=== PATIENT | female | born 1940 | race Caucasian/White ===

== ENCOUNTER 2018-06-19 00:31 | Outpatient (CLI) | payer MEDICARE, OTHER, SELFPAY ==
--- NOTE | 2018-06-19 07:58 | DI.RAD_ITS ---
SYMPTOM/DIAGNOSIS: CHEST PRESSURE, PAIN, R07.9 PA AND LATERAL CHEST: Comparison is made with 09/04/15. Heart size and pulmonary vasculature are within normal limits. No focal consolidating infiltrates, effusions or pneumothoraces are identified. The bones appear intact. There are surgical clips again seen in the right upper quadrant of the abdomen likely reflecting prior cholecystectomy. IMPRESSION: No acute pulmonary process.
--- NOTE | 2018-06-19 07:58 | DI.US_ITS ---
SYMPTOM/DIAGNOSIS: EPIGASTRIC ABD PAIN, R10.9 ABDOMEN ULTRASOUND: Comparison is made with 10/08/16. Comparison CT scan is 03/31/17. The aorta is of normal caliber. The inferior vena cava is unremarkable. The liver is normal in size. There is a septated cyst in the dome of the right lobe of the liver measuring 2.1 by 1.7 by 2.3 cm. This was present on the ultrasound from 10/08/16 at which time it measured 1.[address] scans from 03/31/17 also show a cyst in the superior pole, the oldest CT scan is 2007. This is unchanged. The patient is status post cholecystectomy. The common duct measures 1.0 cm. This likely reflects post cholecystectomy change. The pancreas, spleen and kidneys are unremarkable. IMPRESSION: 2.1 cm. hepatic cyst prior on prior ultrasounds and CT scans. Status post cholecystectomy with the common duct measuring up to 1 cm. This likely is related to post cholecystectomy change. No sonographic evidence of choledocholithiasis is present.
[2018-06-19 09:19] LABS: Abs Immature Grans 0.02 k/cumm (0.0-0.09); Absolute Basophil Count 0.05 k/cumm (0.0-0.2); Absolute Eosinophil Count 0.05 k/cumm (0.0-0.7); Absolute Lymphocyte Count 1.15 k/cumm (1.2-3.4); Absolute Monocyte Count 0.89 k/cumm (0.11-0.7); Absolute Neutrophil Count 5.26 k/cumm (1.2-6.7); Basophils % 0.7; Eosinophils % 0.7; HCT 38.8 % (36.0-46.0); HGB 12.8 g/dL (12.0-15.5); Immature Grans % 0.3; Lymphocytes % 15.5; Mean Corpuscular Hemoglobin 30.9 pg (27.0-33.0); Mean Corpuscular Volume 93.7 fL (80-95); Mean Platelet Volume 9.4 fL (8.0-11.0); Neutrophils % 70.8; Platelet Count 273 x1000/uL (130-400); RBC 4.14 m/cumm (4.00-5.20); RBC Distribution Width 15.1 % (11.7-14.6); White Blood Cell Count 7.42 k/cumm (4.4-10.8)
[2018-06-19 10:47] LABS: ALT 627 U/L (12-78); AST 267 U/L (15-37); Albumin 4.3 g/dL (3.4-5.0); Alkaline Phosphatase 360 U/L (46-116); Anion Gap 13.1 mmol/L (3-11); BUN 8 mg/dL (7-18); Bilirubin, Total 4.1 mg/dL (0.2-1.0); CO2 26.9 mmol/L (21.0-32.0); CREATININE 0.76 mg/dL (0.55-1.02); Calcium 9.9 mg/dL (8.5-10.1); Chloride 100 mmol/L (98-107); Glucose 102 mg/dL (70-100); Potassium 3.8 mmol/L (3.5-5.1); Sodium 140 mmol/L (136-145); TSH (W/Ref FT4) 1.91 uIU/mL (0.358-3.74); Total Protein 7.7 g/dL (6.4-8.2)
[2018-06-19 13:10] LABS: Lipase 468 U/L (73-393)
== END 2018-06-19 00:51 ==
PROVIDERS: PCP Family Medicine; Visit Provider Family Medicine
DX: R10.9 Unspecified abdominal pain (principal); R10.13 Epigastric pain; R07.9 Chest pain, unspecified; R14.0 Abdominal distension (gaseous); K52.9 Noninfective gastroenteritis and colitis, unspecified; R14.3 Flatulence; K76.89 Other specified diseases of liver; E78.5 Hyperlipidemia, unspecified; Z90.49 Acquired absence of other specified parts of digestive tract
CPT/HCPCS: 80053; 83690; 71046; 76700; 81003; 84443; 85025

== ENCOUNTER 2018-06-22 10:21 | Outpatient (CLI) | payer MEDICARE, OTHER, SELFPAY ==
[2018-06-22 12:53] LABS: Abs Immature Grans 0.01 k/cumm (0.0-0.09); Absolute Basophil Count 0.04 k/cumm (0.0-0.2); Absolute Eosinophil Count 0.09 k/cumm (0.0-0.7); Absolute Lymphocyte Count 1.19 k/cumm (1.2-3.4); Absolute Monocyte Count 0.86 k/cumm (0.11-0.7); Absolute Neutrophil Count 3.94 k/cumm (1.2-6.7); Basophils % 0.7; Eosinophils % 1.5; HCT 38.4 % (36.0-46.0); HGB 12.5 g/dL (12.0-15.5); Immature Grans % 0.2; Lymphocytes % 19.4; Mean Corp. HGB Concentration 32.6 g/dL (32.0-36.0); Mean Corpuscular Hemoglobin 30.9 pg (27.0-33.0); Mean Platelet Volume 10.3 fL (8.0-11.0); Neutrophils % 64.2; Platelet Count 253 x1000/uL (130-400); RBC 4.04 m/cumm (4.00-5.20); White Blood Cell Count 6.13 k/cumm (4.4-10.8)
[2018-06-22 13:41] LABS: ALT 407 U/L (12-78); AST 147 U/L (15-37); Albumin 4.2 g/dL (3.4-5.0); Alkaline Phosphatase 256 U/L (46-116); Anion Gap 9.2 mmol/L (3-11); BUN 10 mg/dL (7-18); Bilirubin, Total 1.4 mg/dL (0.2-1.0); CO2 28.8 mmol/L (21.0-32.0); CREATININE 0.74 mg/dL (0.55-1.02); Calcium 10.1 mg/dL (8.5-10.1); Chloride 100 mmol/L (98-107); Glucose 88 mg/dL (70-100); Potassium 4.1 mmol/L (3.5-5.1); Sodium 138 mmol/L (136-145); Total Protein 7.6 g/dL (6.4-8.2)
[2018-06-22 13:54] LABS: GGT 983 U/L (5-55)
[2018-06-22 14:43] LABS: Lipase 202 U/L (73-393)
== END 2018-06-22 10:41 ==
PROVIDERS: PCP Family Medicine; Visit Provider Family Medicine
DX: R74.8 Abnormal levels of other serum enzymes (principal); R94.5 Abnormal results of liver function studies; K85.90 Acute pancreatitis without necrosis or infection, unspecified
CPT/HCPCS: 36415; 80053; 83690; 82977; 85025

== ENCOUNTER 2018-06-22 12:38 | Inpatient (IN) | payer MEDICARE, OTHER, SELFPAY ==
[2018-06-22 12:05] VITALS: BP 136/85; PULSE 90; RESP 18; TEMP 37.4; O2SAT 94
[2018-06-22 14:34] VITALS: BP 136/85; PULSE 90; RESP 18; TEMP 37.4; O2SAT 94
--- NOTE | 2018-06-22 15:10 | HPE_ITS ---
Date of service: 06/22/18 Time of Service: 13:00 Assessment and Plan (1) Vomiting: Current visit: Yes Status: Acute Probably related to whatever is driving her abnormal LFTs and lipase, perhaps due to pancreatitis although the prompt improvement in her lipase raises questions as to whether or not pancreatitis is playing a role. I do not think this is central. Her symptoms do not suggest gastroenteritis. Might have peptic ulcer disease? Perhaps she passed a gallstone? Diagnostically, CT scan of the abdomen. Therapeutically IV fluids and clear liquids. IV PPI. Antiemetics as needed. Follow. (2) Abnormal serum lipase level: Current visit: Yes Status: Acute Lipase has normalized over the weekend. Do not know if this was pancreatic or salivary in origin, probably the former. Wonder if she may have passed a stone? Benign exam now. Diagnostically CT scan of the abdomen. Therapeutically clear liquids, pain medications as needed. Monitor response. (3) Elevated liver function tests: Current visit: Yes Status: Acute Abnormalities noted last week are trending down. Unclear if there was a stone that passed causing this. Given the prompt improvement I think it is unlikely that sulfasalazine is causative although this still remains on the differential as to possible causes. Diagnostically check CT. Follow labs. No specific treatment at this point. If CT nondiagnostic and transaminase levels do not normalize fully, consider MRCP. (4) Abdominal pain: Current visit: Yes Status: Acute History suggest pancreatitis but labs have normalized quite quickly with no particular intervention. Perhaps she passed a stone? Will allow clear liquids, symptom treatment, PPI and await CT scan results. If pain persists, CT does not provide an answer, consider MRCP, consider EGD. (5) Depressive disorder: Current visit: Yes Status: Chronic Still somewhat symptomatic despite top dose of Effexor. Continue same. Any medication additions or adjustments I defer to outpatient setting. (6) Colitis: Current visit: Yes Status: Chronic Per patient history symptoms seem to be under control with sulfasalazine at current dose. I am a little concerned it may be contributing to her abnormal transaminase levels. I am holding her sulfasalazine now with low threshold to restart it if symptoms improve and transaminase levels normalize. I am not initiating any other treatment at this time such as steroids or mesalamine. I am anticipating resuming her sulfasalazine within 24-48 hours. History of Present Illness Chief Complaint: Anorexia, vomiting, abdominal pain, abnormal LFTs and lipase Narrative: Mrs. Carlos Alberto Soto is a 77-year-old woman admitted from Dr. León's office because of vomiting, malaise, and mid abdominal pain. She reports weeks to months of just feeling unwell which she attributes to ongoing family/home life related stressors. In the past 1-2 weeks she has had the development of abdominal pain which has intensified over the weekend with associated vomiting. She was seen Friday for these complaints and labs were drawn showing elevated AST ALT alk phos and total bili and lipase. She was instructed to have clear liquids only over the weekend and return for follow-up appointment today. At that visit she reports she had some vomiting over the weekend, still felt quite weak. Had not eaten much, had lost weight. Repeat labs were drawn and she was sent for direct admission. She has not had fever. She has had some chills. She describes pressure like pain in the epigastric and mid abdominal area that is not changed by bowel movements. Eating does not seem to affect the symptoms. She has tried clear liquids and tolerated them better than solids. She has not had any dysphasia. She has no known history of peptic ulcer disease. She was placed on a PPI and then Carafate empirically and she does not think it has made much difference in her symptoms. She has had no melanotic stool. No hematemesis. She does not drink alcohol. She is status post cholecystectomy. She has a history of colitis, noted on colonoscopy 11/2012 with biopsy showing patchy areas of inflammation, not classic for ulcerative colitis but suspected. Follow-up colonoscopy in 2014 noted is some inflammatory changes distally which may have been from bowel prep or procedure, biopsies were not done. She has been on sulfasalazine and within the past few months her dose was increased because of increased frequency of bowel movements but no blood. She has not had transaminase levels checked since July 2017, the first time they were reassessed was last Friday, several months after the dose increase in sulfasalazine. Her home medication list below does not reflect the fact that PPI and sucralfate are new additions to her with these present complaints. Review of Systems Review of Systems Generally has been feeling weak, not focal. No fevers although has had some chills. No cough or wheeze. No palpitations or anginal type chest pain. Appetite down. No dysuria. She has noted urine to be dark over the weekend. No blood. No paresthesias or focal weakness. No ankle swelling. No rashes. Mood is still depressed despite top dose Effexor. Worried that she may have early symptoms of Alzheimer which were problems that her mother and maternal grandmother both had. [facility] Medical History Abnormal serum lipase level (Acute) Vomiting (Acute) Elevated liver function tests (Acute) Abdominal pain (Acute ~03/12/18) Osteoarthritis (Chronic) Hyperlipidemia (Chronic) Depressive disorder (Chronic) Colitis (Chronic 12/15/12) Abnormal mammogram, unspecified (Resolved) Radial styloid tenosynovitis (Resolved) Smoker (Resolved) Surgical History History of gynecologic surgery (Resolved) S/P breast biopsy (Resolved) S/P carpal tunnel release (Resolved) S/P cholecystectomy (Resolved) Biopsy of breast Cervical Procedure (09/18/11) Cholecystectomy Open Carpal Tunnel release Family History Mother Essential hypertension Senile dementia uncomp Father Heart disease Brother No problems noted. Paternal Grandfather Cancer Maternal Grandmother Senile dementia uncomp Son No problems noted. Son No problems noted. Social History highest education level completed: some college, no degree current occupational status: retired pets and animals: No frequency: does not exercise Smoking and Tabacco status: Former Tobacco Use quit date: 04/14/09 alcohol intake: former substance use type: does not use karlo/adventism: Scientologist special karlo needs: No Meds Home Medications Medication Instructions Recorded Confirmed Type multivitamin [Daily Vitamin] 1 ea PO DAILY 10/11/14 06/22/18 History aspirin [Aspir 81] 1 tab PO DAILY 03/13/15 06/22/18 History fluticasone propionate 2 spry INHALATION DAILY PRN #3 09/12/16 06/22/18 History bottle cholecalciferol (vitamin D3) 1,000 unit PO DAILY 07/08/17 06/22/18 History trazodone 0.5 - 1 tab PO HS #90 tab-cap 04/04/18 03/11/19 Rx venlafaxine ER 37.5 mg 37.5 mg PO DAILY #90 tab-cap 03/31/18 06/22/18 Rx capsule,extended release 24 hr venlafaxine ER 75 mg 150 mg PO DAILY #180 tab-cap 03/31/18 06/22/18 Rx capsule,extended release 24 hr sulfasalazine 500 mg tablet See Rx Instructions PO QID tab-cap 06/04/18 06/22/18 History omeprazole 20 mg capsule,delayed 20 mg PO BID #90 cap 06/17/18 06/22/18 Rx release sucralfate 100 mg/mL oral 10 ml PO QID #420 ml 06/17/18 06/22/18 Rx suspension Allergies Allergy/AdvReac Type Severity Reaction Status Date / Time propoxyphene AdvReac Severe GI UPSET Unverified 06/22/18 11:14 fluticasone AdvReac Intermediate TACHYCARDIA Unverified 06/22/18 11:14 salmeterol AdvReac Intermediate TACHYCARDIA Unverified 06/22/18 11:14 Exam Narrative Exam Narrative: Mildly anxious, sometimes has a hard time recalling events from her past medical history. Awake and oriented x4. No scleral icterus. No facial asymmetry. Mucous membranes slightly dry. No JVD. No cervical nodes. Clear lungs. No heart murmur S3 or S4. Abdomen with active bowel sounds, minimal tenderness to palpation in the epigastric area no guarding or rebound. No tenderness in the lower quadrants. Pelvic and rectal exams were not done. Extremities warm 2+ pulses no pitting edema. She has 1+ DTRs at the knees 2+ at the elbows. Symmetric movement of all extremities. Transfers independently. No ataxia. Abdominal ultrasound from last week showed surgical absence of the gallbladder, small cyst in the dome of the right lobe of the liver that may have increased slightly in size compared to an ultrasound from 2017. Common bile duct 1 cm felt to be postsurgical change, normal-appearing pancreas spleen and kidneys. There was no evidence of choledocholithiasis on the ultrasound. White count remains normal as do hemoglobin and hematocrit. Electrolytes, BUN and creatinine are normal. Her total bili is gone from 4.1-1.4, GGT elevated 983. Her AST ALT and alkaline phosphatase are all lower than they were on June 19 and her lipase is now within population normal range. Urinalysis with ketones, small amount of bilirubin, otherwise unremarkable Results Last Vital Signs Temp 37.4 C 06/22/18 14:34 Pulse 90 06/22/18 14:34 Resp 18 06/22/18 14:34 BP 136/85 06/22/18 14:34 Pulse Ox 94 L 06/22/18 14:34
--- NOTE | 2018-06-22 15:50 | DI.CT_ITS ---
SYMPTOM/DIAGNOSIS: EPIGASTRIC/ABD PAIN, VOMITING, HIGH LIPASE ABDOMEN CT: CT scan of the abdomen was performed following the uneventful administration of intravenous and oral contrast material. Comparison CT scan is 10/04/07. There is scarring or atelectasis seen in the lung bases. The liver is normal in size. There is a hypodense lesion seen in the dome of the right lobe of the liver most suggestive of a cyst. This was present on the CT scan from 10/04/07. No suspicious hepatic masses are seen. The portal, superior mesenteric and splenic veins are patent. The patient is status post cholecystectomy. No significant biliary ductal dilatation is seen. The pancreas and peripancreatic soft tissues are unremarkable as are the spleen and adrenal glands. The kidneys show normal and symmetric enhancement. No evidence of a solid renal mass is seen. There are bilateral renal cysts, the largest is seen in the right kidney and measures 1.4 cm. There is ectasia of the abdominal aorta. There is atherosclerosis present. No aneurysmal dilatation is seen. No significant abdominal adenopathy, ascites or pneumoperitoneum is seen. The bowel shows no evidence of obstruction or inflammation. Degenerative changes are seen in the spine. IMPRESSION: No evidence of an acute abdomen.
[2018-06-22] MEDS: Omnipaque 350 MG/ML 100 ML BTL IJ (16:11)
[2018-06-22 16:19] VITALS: BP 143/84; PULSE 76; RESP 19; TEMP 36.3; O2SAT 94
[2018-06-22 16:30] VITALS: O2SAT 93
--- NOTE | 2018-06-22 16:34 | DI.VRAD_ITS ---
EXAM: CT Abdomen With Contrast EXAM DATE/TIME: 06/22/2018 1:42 PM CLINICAL HISTORY: 77 years old, female; Pain and signs and symptoms and abnormal findings; Abnormal lab test; Elevated lipase; Vomiting; Abdominal pain; Epigastric; Patient HX: Epigastric/abdominal pain, vomiting, high lipase TECHNIQUE: Axial computed tomography images of the abdomen with intravenous contrast. Coronal and sagittal reformatted images were created and reviewed. COMPARISON: US ABDOMEN 06/19/2018 1:20 PM FINDINGS: Lower thorax: Mild atelectasis/scarring in the lung bases. Liver: A cystlike focus is seen the superior right liver lobe and seen to measure up to 2.3 cm. Margins are lobulated, well-defined. Overall features by CT appear simple. Liver is otherwise unremarkable. Gallbladder and bile ducts: Cholecystectomy. Pancreas: Normal. No ductal dilation. Spleen: Normal. No splenomegaly. Adrenals: Normal. No mass. Kidneys and ureters: Bilateral renal cysts are present. Largest is on the right and seen to measure up to 1.4 cm. Stomach and bowel: Normal. No obstruction. No mucosal thickening. Intraperitoneal space: Unremarkable. No free air. No significant fluid collection. Bones/joints: Unremarkable.No acute fracture. No dislocation. Soft tissues: Unremarkable. Vasculature: Aortic ectasia with atherosclerosis. Lymph nodes: Unremarkable. No enlarged lymph nodes. IMPRESSION: No acute findings. Dictated and Authenticated by: Gary Castillo MD. Ordering:KHOA Woods MD
[2018-06-22] MEDS: Enoxaparin 40 MG/0.4 ML SYR SC (16:45)
[2018-06-22] MEDS: Pantoprazole 40 MG VIAL IVP (16:45)
[2018-06-22] MEDS: Lactated Ringers 1,000 ML 120 ML IV (16:45)
[2018-06-22] MEDS: Normal Saline Flush 10 ML SYR IVP (17:31)
[2018-06-22 20:16] VITALS: BP 132/78; PULSE 68; RESP 18; TEMP 37; O2SAT 93
[2018-06-23 01:10] VITALS: BP 126/76; PULSE 68; RESP 18; TEMP 36.9; O2SAT 93
[2018-06-23] MEDS: Lactated Ringers 1,000 ML 120 ML IV ×2 (01:21→09:35)
[2018-06-23 03:42] VITALS: BP 134/78; PULSE 70; RESP 16; TEMP 36.9; O2SAT 93
[2018-06-23 07:32] LABS: ALT 312 U/L (12-78); AST 113 U/L (15-37); Albumin 3.6 g/dL (3.4-5.0); Alkaline Phosphatase 209 U/L (46-116); Anion Gap 8.2 mmol/L (3-11); BUN 8 mg/dL (7-18); Bilirubin, Total 1.2 mg/dL (0.2-1.0); CO2 30.8 mmol/L (21.0-32.0); Calcium 9.2 mg/dL (8.5-10.1); Chloride 102 mmol/L (98-107); Glucose 89 mg/dL (70-100); Potassium 3.6 mmol/L (3.5-5.1); Sodium 141 mmol/L (136-145); Total Protein 6.7 g/dL (6.4-8.2)
[2018-06-23 07:40] VITALS: BP 143/81; PULSE 68; RESP 18; TEMP 36.7; O2SAT 94
[2018-06-23 08:23] LABS: Lipase 212 U/L (73-393)
[2018-06-23] MEDS: Venlafaxine 37.5 MG CAPCR PO (09:36)
[2018-06-23] MEDS: Venlafaxine 150 MG CAPCR PO (09:36)
[2018-06-23 11:45] VITALS: BP 140/77; PULSE 75; RESP 18; TEMP 36.6; O2SAT 94
--- NOTE | 2018-06-23 12:13 | PDOC.CMIN ---
- If Service Date Differs Date of service: 06/23/18 Time of Service: 12:13 Care Management Initial Assess REASON FOR HOSPITALIZATION:: Vomiting, Abdominal Pain PAST MEDICAL HISTORY/PAST SURGICAL HISTORY:: Abnormal serum lipase level (Acute). Vomiting (Acute). Elevated liver function tests (Acute). Abdominal pain (Acute ~03/12/18). Osteoarthritis (Chronic). Hyperlipidemia (Chronic). Depressive disorder (Chronic). Colitis (Chronic 12/15/12). Abnormal mammogram, unspecified (Resolved). Radial styloid tenosynovitis (Resolved). Smoker (Resolved). History of gynecologic surgery (Resolved). S/P breast biopsy (Resolved). S/P carpal tunnel release (Resolved). S/P cholecystectomy (Resolved). Biopsy of breast. Cervical Procedure (09/18/11). Cholecystectomy. Open Carpal Tunnel release PREVIOUS FUNCTIONAL STATUS/SOCIAL/FAMILY SUPPORTS:: Ping resides with her SO Constantino and son in [place]. She states that she was residing in [place] prior to moving, and that she preferred [place]. Ping is independent at baseline, she drives, and manages ADL's CURRENT FUNCTIONAL STATUS:: Currently Ping is sitting up in her bed when this designer writer visits. She is pleasant and receptive to discussion. ADVANCE DIRECTIVES:: None on file Has patient been provided with information about the portal?: Yes Did the patient sign up for the portal?: No CODE STATUS:: Full Code INSURANCE COVERAGE / FINANCIAL ISSUES:: Medicare, [employer] CURRENT HOME/COMMUNITY SERVICES/EQUIPMENT:: Currently Ping has no services or medical equipment in the community. She does state that she sees Gifty Cabral for counseling. PRIMARY CARE PHYSICIAN:: Dr. León POTENTIAL DISCHARGE NEEDS:: F/U appointment with PCP PATIENT/FAMILY EDUCATION NEEDS:: Review DC instructions, any limitations, and ongoing DC planning discussion. Discuss 'Ask Me Three' ANTICIPATED BARRIERS TO DISCHARGE:: None identified at this time. TRANSPORTATION:: Via private vehicle with SO PLAN:: Ping will return home with no anticipated services. She will f/U with PCP and plan of care as prescribed. SO to transport home.
--- NOTE | 2018-06-23 12:31 | INITIAL_ITS ---
- If Service Date Differs Date of service: 06/23/18 Time of Service: 12:13 Care Management Initial Assess REASON FOR HOSPITALIZATION:: Vomiting, Abdominal Pain PAST MEDICAL HISTORY/PAST SURGICAL HISTORY:: Abnormal serum lipase level (Acute). Vomiting (Acute). Elevated liver function tests (Acute). Abdominal pain (Acute ~03/12/18). Osteoarthritis (Chronic). Hyperlipidemia (Chronic). Depressive disorder (Chronic). Colitis (Chronic 12/15/12). Abnormal mammogram, unspecified (Resolved). Radial styloid tenosynovitis (Resolved). Smoker (Resolved). History of gynecologic surgery (Resolved). S/P breast biopsy (Resolved). S/P carpal tunnel release (Resolved). S/P cholecystectomy (Resolved). Biopsy of breast. Cervical Procedure (09/18/11). Cholecystectomy. Open Carpal Tunnel release PREVIOUS FUNCTIONAL STATUS/SOCIAL/FAMILY SUPPORTS:: Ping resides with her SO Constantino and son in [place]. She states that she was residing in [place] prior to moving, and that she preferred [place]. Ping is independent at baseline, she drives, and manages ADL's CURRENT FUNCTIONAL STATUS:: Currently Ping is sitting up in her bed when this keno writer/runner visits. She is pleasant and receptive to discussion. ADVANCE DIRECTIVES:: None on file Has patient been provided with information about the portal?: Yes Did the patient sign up for the portal?: No CODE STATUS:: Full Code INSURANCE COVERAGE / FINANCIAL ISSUES:: Medicare, [employer] CURRENT HOME/COMMUNITY SERVICES/EQUIPMENT:: Currently Ping has no services or medical equipment in the community. She does state that she sees Gifty Cabral for counseling. PRIMARY CARE PHYSICIAN:: Dr. León POTENTIAL DISCHARGE NEEDS:: F/U appointment with PCP PATIENT/FAMILY EDUCATION NEEDS:: Review DC instructions, any limitations, and ongoing DC planning discussion. Discuss 'Ask Me Three' ANTICIPATED BARRIERS TO DISCHARGE:: None identified at this time. TRANSPORTATION:: Via private vehicle with SO PLAN:: Ping will return home with no anticipated services. She will f/U with PCP and plan of care as prescribed. SO to transport home.
--- NOTE | 2018-06-23 14:36 | CHAPLAIN ---
Ping was resting in bed when I visited. She shared a lot personal history, telling me about growing up in [place], moving to [place] and now living in [place]. 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 She traveled extensively with her horses. Although she no longer owns horses or is involved with horses, she considers her time with family and horses some of the best years of her life. She lives in [place] now with a partner, Constantino.
--- NOTE | 2018-06-23 18:14 | W.PM.DS.N ---
Date of service: 06/23/18 Time of Service: 18:14 DS: Diagnosis Discharge Diagnosis (1) Vomiting: Status: Acute (2) Abnormal serum lipase level: Status: Acute (3) Elevated liver function tests: Status: Acute (4) Abdominal pain: Status: Acute (5) Depressive disorder: Status: Chronic (6) Colitis: Status: Chronic Discharge Plan Disposition Patient Disposition: HOME Condition: Good Discharge Details Reason For Visit: VOMITING,ABDOMINAL PAIN,ABNORMAL LFTS,POSS PANCREA Admit Date/Time: 06/22/18 12:38 Admit Provider: Chuck Castro Attending Provider: Chuck Castro Primary Care Provider: oCco León [facility] Course Hospital Course: 77-year-old woman admitted as a direct admit from [facility] because of abnormal liver function tests. She had about 2 weeks of abdominal pain with some vomiting and loss of appetite. Lab testing done on 06/19/2018 showed markedly elevated transaminases and bilirubin. Her amylase was elevated as well. Patient maintained herself at home over the weekend and was admitted as a direct admit on 06/22/2018. At that time her LFTs had shown marked improvement. She was feeling better and tolerated a clear liquid diet which was advanced to a regular diet. She had no further abdominal pain nausea or vomiting. A hepatitis panel is pending at the time of discharge. Bilirubin had normalized to 1.2. It was presumed that she passed a biliary stone and that her symptoms were improving. Home Meds and New Rx's Prescriptions: Continued venlafaxine [Effexor XR] 37.5 mg capsule,extended release 24hr 37.5 mg PO DAILY Qty: 90 RF: 12 venlafaxine [Effexor XR] 75 mg capsule,extended release 24hr 150 mg PO DAILY Qty: 180 RF: 12 sucralfate [Carafate] 100 mg/mL suspension 10 ml PO QID Qty: 420 RF: 4 omeprazole 20 mg capsule,delayed release(DR/EC) 20 mg PO BID Qty: 90 RF: 4 multivitamin [Daily Vitamin] 1 EACH tablet 1 ea PO DAILY RF: 0 fluticasone propionate 16 GM spray,suspension 2 spry Inhalation DAILY PRNQty: 3 RF: 12 cholecalciferol (vitamin D3) 1,000 UNIT capsule 1,000 unit PO DAILY RF: 0 trazodone 100 MG tablet 0.5 - 1 tab PO HS Qty: 90 RF: 11 aspirin [Aspir-81] 81 MG tablet,delayed release (DR/EC) 1 tab PO DAILY RF: 0 Changed sulfasalazine 500 mg tablet See Rx Instructions .ROUTE .COMPLEX Qty: 0 RF: 0 Discharge Instructions Instructions: Pancreatitis (DC), Acute Nausea and Vomiting (DC) Stand Alone Forms: Nursing Discharge Form Referrals: Coco León MD, [place] [Primary Care Provider] - 06/30/18 1:20 pm Activity:: Activity as Tolerated Equipment/Supplies:: No Equipment Needed Diet:: As Tolerated Discharge Orders Discharge Orders: Discharge Order (Routine); Ordered 06/23/18 Ordered By: Sohail Aguiar Discharge Data Discharge Date/Time-TO BE ENTERED AT DEPARTURE: 06/23/18 16:00 Exam Narrative Exam Narrative: On the day of discharge the patient appeared well. She was sitting up in bed eating a regular diet. She had no abdominal discomfort to palpation. Her right upper quadrant was nontender and there was no evidence of hepatosplenomegaly. She had no respiratory difficulty. DS: Data Vitals/I&O Vitals and I&O: Vital Signs Temperature 36.6 C 06/23/18 11:45 Temperature Source Tympanic 06/23/18 11:45 Pulse 75 06/23/18 11:45 Pulse Rhythm Regular 06/23/18 08:45 Respiratory Rate 18 06/23/18 11:45 Respiratory Effort Non-Labored 06/23/18 08:45 Respiratory Depth Normal 06/23/18 08:45 Respiratory Pattern Normal 06/23/18 08:45 Blood Pressure 140/77 06/23/18 11:45 Pulse Oximetry 94 L 06/23/18 11:45 Oxygen Delivery Method Room Air 06/23/18 11:45 Oxygen Flow Rate 0 06/23/18 11:45 Pain Level 0 06/23/18 11:45 Intake & Output 06/22/18 06/23/18 06/23/18 23:59 11:59 23:59 Intake Total 6078 / 3178 480 / 3178 Output Total 200 / 200 Balance 2498 / 2978 480 / 2978 Weight 76.9 kg 75.7 kg Intake: IV 1987 Oral 710 / 1190 480 / 1190 Output: Urine 200 / 200 Other: Urine Color Yellow Urine Appearance Clear Clear Urine Odor Normal Voiding Methods Toilet Labs on day of discharge: Labs from last 24 hours 06/23/18 06/23/18 06/23/18 08:06 06:50 06:50 Sodium 141 Potassium 3.6 Chloride 102 Carbon Dioxide 30.8 Anion Gap 8.2 BUN 8 Creatinine 0.70 Estimated GFR/1.73 m2 >= 60.00 Glucose 89 Calcium 9.2 Total Bilirubin 1.2 H AST 113 H ALT 312 H Alkaline Phosphatase 209 H Total Protein 6.7 Albumin 3.6 Lipase 212 Hepatitis A IgM Ab Pending Hep Bs Antigen Pending Hep B Core Total Ab Pending Hepatitis C Antibody Pending [facility] Medical History Abnormal serum lipase level (Acute) Vomiting (Acute) Elevated liver function tests (Acute) Abdominal pain (Acute ~03/12/18) Osteoarthritis (Chronic) Hyperlipidemia (Chronic) Depressive disorder (Chronic) Colitis (Chronic 12/15/12) Abnormal mammogram, unspecified (Resolved) Radial styloid tenosynovitis (Resolved) Smoker (Resolved) Surgical History History of gynecologic surgery (Resolved) S/P breast biopsy (Resolved) S/P carpal tunnel release (Resolved) S/P cholecystectomy (Resolved) Biopsy of breast Cervical Procedure (09/18/11) Cholecystectomy Open Carpal Tunnel release Family History Mother Essential hypertension Senile dementia uncomp Father Heart disease Brother No problems noted. Paternal Grandfather Cancer Maternal Grandmother Senile dementia uncomp Son No problems noted. Son No problems noted. Social History highest education level completed: some college, no degree current occupational status: retired pets and animals: No frequency: does not exercise Smoking and Tabacco status: Former Tobacco Use quit date: 04/14/09 alcohol intake: former substance use type: does not use karlo/mu-ism: Episcopalian special karlo needs: No
[2018-06-24 13:02] LABS: Hepatitis A Antibody IgM Negative (NEGAT); Hepatitis B Core Antibody Negative (NEGAT); Hepatitis B surface Ag Negative (NEGAT); Hepatitis C Ab w Rflx HCV PCR Negative (NEGAT)
== END 2018-06-23 16:00 | disposition home or self-care (01) | DRG 392 ==
PROVIDERS: Admitting Provider Internal Medicine; PCP Family Medicine; Visit Provider Family Medicine
DX: R11.10 Vomiting, unspecified (principal); R74.8 Abnormal levels of other serum enzymes; R94.5 Abnormal results of liver function studies; R10.9 Unspecified abdominal pain; F32.9 Major depressive disorder, single episode, unspecified; K52.9 Noninfective gastroenteritis and colitis, unspecified
CPT/HCPCS: 36415; 80053; 83690; 86704; 86709; 86803; 87340; 99222; 99239; J1650; 74160; J3490

== ENCOUNTER 2018-06-22 15:17 | Outpatient (REF) | payer MEDICARE, OTHER, SELFPAY ==
[2018-06-22 14:05] LABS: Bilirubin Small (Negative); Blood Negative (Negative); Clarity Clear; Glucose Negative (Negative); Ketones 15 mg/dL (Negative); Leukocyte Esterase Negative (Negative); Nitrite Negative (Negative); Specific Gravity 1.015 (1.005-1.025); Urobilinogen 0.2 EU/dL (Up TO 0.2)
== END 2018-06-22 15:37 ==
LOC: LBN 15:17
PROVIDERS: PCP Family Medicine; Visit Provider Family Medicine
DX: R10.9 Unspecified abdominal pain (principal)
CPT/HCPCS: 81003

== ENCOUNTER 2019-10-19 19:40 | Outpatient (REF) | payer MEDICARE, OTHER, SELFPAY ==
[2019-10-19 21:20] LABS: Hemoglobin A1C 4.2 % (3.8-5.6)
[2019-10-19 21:37] LABS: ALT 21 U/L (14-59); AST 18 U/L (15-37); Albumin 4.3 g/dL (3.4-5.0); Alkaline Phosphatase 72 U/L (46-116); Anion Gap 8.2 mmol/L (3-11); BUN 11 mg/dL (7-18); Bilirubin, Total 0.4 mg/dL (0.2-1.0); CO2 27.8 mmol/L (21.0-32.0); CREATININE 0.64 mg/dL (0.55-1.02); Calcium 9.8 mg/dL (8.5-10.1); Chloride 102 mmol/L (98-107); Ferritin 151 ng/mL (8-252); GGT 30 U/L (5-55); Glucose 87 mg/dL (74-106); Potassium 4.3 mmol/L (3.5-5.1); Sodium 138 mmol/L (136-145); TSH (W/Ref FT4) 2.96 uIU/mL (0.36-3.74); Total Protein 7.3 g/dL (6.4-8.2); Vitamin B12 363 pg/mL (193-986)
[2019-10-19 22:59] LABS: Iron 59 ug/dL (50-170)
== END 2019-10-19 20:00 ==
LOC: LBN 19:40
PROVIDERS: PCP Family Medicine; Visit Provider Family Medicine
DX: E11.9 Type 2 diabetes mellitus without complications (principal); G62.9 Polyneuropathy, unspecified; E78.5 Hyperlipidemia, unspecified; K52.9 Noninfective gastroenteritis and colitis, unspecified; R41.3 Other amnesia; R53.82 Chronic fatigue, unspecified
CPT/HCPCS: 80053; 82607; 82728; 82977; 83036; 83540; 84443

== ENCOUNTER 2022-05-15 10:22 | Emergency (ER) | payer MEDICARE, OTHER, SELFPAY ==
[2022-05-15 10:28] VITALS: BP 114/47; PULSE 96; RESP 18; TEMP 36.8; O2SAT 99
--- NOTE | 2022-05-15 10:30 | DI.US_ITS ---
Exam(s) US UPPER EXTREMITY VENOUS LT EXAM: US UPPER EXTREMITY VENOUS LT CLINICAL HISTORY: ecchymosis, swelling left arm. TECHNIQUE: Ultrasound examination of the left upper extremity venous system(s) is performed using gr ayscale, color-flow, and spectral Doppler analysis. COMPARISON: No exams were available for comparison FINDINGS: The left internal jugular, axillary, subclavian, cephalic, basilic, brachial, radial, and ulnar veins are patent without evidence of thrombosis. There is a focal hematoma measuring 4 by 2.5 x 2 cm peggy esponding to the palpable abnormality in the upper arm. IMPRESSION: No DVT. DATA REPOSITORY:
[2022-05-15 10:55] LABS: Abs Immature Grans 0.05 10^3/uL (0.0-0.06); Absolute Basophil Count 0.07 10^3/uL (0.0-0.2); Absolute Lymphocyte Count 1.37 10^3/uL (1.2-3.4); Absolute Monocyte Count 1.21 10^3/uL (0.1-0.8); Absolute Neutrophil Count 6.62 10^3/uL (1.2-6.7); Basophils % 0.7; Eosinophils % 1.1; HCT 38.8 % (36.0-46.0); HGB 12.4 g/dL (11.2-15.7); Immature Grans % 0.5; Lymphocytes % 14.5; MCH 29.5 pg (27.0-33.0); MCV 92 fL (80-95); MPV 9.2 fL (8.0-11.0); Monocytes % 12.8; Neutrophils % 70.4; Platelet Count 213 10^3/uL (130-400); RBC 4.21 10^6/uL (3.93-5.22); RDW-SD 47.1 fL; WBC 9.42 10^3/uL (4.4-10.8)
[2022-05-15 11:07] LABS: Prothrombin Time 10.4 sec (9.3-11.0)
--- NOTE | 2022-05-15 13:22 | W.ED.GENAD ---
Discharge Plan Disposition Patient Disposition: Home Condition: Stable Discharge Details Clinical Impression: Biceps muscle tear Primary Care Provider: Unknown,Unknown ED Provider: Gabriela Bull Home Meds and New Rx's Prescriptions: Continued fluticasone propionate 50 mcg/actuation spray,suspension 2 spray Inhalation DAILY PRN (Reason: allergy symptoms) Qty: 3 1RF sulfasalazine 500 mg tablet See Rx Instructions .ROUTE BID Qty: 720 7RF Rx Instructions: 4 tabs twice a day; trazodone 100 mg tablet 100 mg PO HS Qty: 90 11RF Rx Instructions: hold trazadone while on ciprofloxin venlafaxine [Effexor XR] 37.5 mg capsule,extended release 24hr 37.5 mg PO DAILY Qty: 90 12RF Rx Instructions: total daily dose 187.5mg venlafaxine [Effexor XR] 75 mg capsule,extended release 24hr 150 mg PO DAILY Qty: 180 12RF Adult 50 Plus Probiotic 4 billion cell capsule 4,000 mmu cells PO DAILY Rx Instructions: administer with a meal multivitamin [Daily Vitamin] 1 EACH tablet 1 ea PO DAILY cholecalciferol (vitamin D3) 1,000 UNIT capsule 1,000 unit PO DAILY Discharge Instructions Additional Instructions: Compression, Tylenol as needed for pain Ice Elevate Follow-up with your primary care physician when you arrive home for an orthopedic referral as I think you have torn part of your bicep muscle Compression will help the pain and swelling resolve Elevate above your heart is much as possible Return earlier should you have new or worsening complaints Refrain from lifting greater than 5 pounds Use your sling as needed while awake Medical Decision Making Patient presents with tenderness, swelling, ecchymosis to left upper arm She is neurovascularly intact, I suspect she probably has a bicep tear, strength is preserved, tenderness appreciated, no evidence of compartment syndrome Secondary to age and clinical exam findings I did order CBC, patient is hemodynamically stable I also ordered ultrasound which shows hematoma likely consistent with a bicep tear No evidence of DVT Repeat ultrasound in 1 week with persistent symptoms recommended Patient does not live locally, she reports living in [place], she will follow-up with her primary care physician for orthopedic referral when she returns home Edward wrap was applied to assist with healing and a sling was supplied as well Return precautions reviewed and patient expressed understanding Medical Records Medical records reviewed: Yes I reviewed the patient's medical records. Lab Data Lab results reviewed: Yes I reviewed the patient's lab results. HPI General Date/Time Provider Initiated Documentation: 05/15/22 10:37. HPI Narrative: This 81-year-old female presents with report of left upper arm burning after lifting her cat. She has pain and bruising to this area. She denies any additional pain complaints. She states this happened several days ago. Pain is exacerbated with lifting. Denies any chest pain or shortness of breath. Related Data Home Medications Medication Instructions Recorded Confirmed multivitamin (Daily Vitamin tablet) 1 ea PO DAILY 10/11/14 05/15/22 cholecalciferol (vitamin D3) 25 1,000 unit PO DAILY 07/08/17 05/15/22 mcg (1,000 unit) capsule lactobacillus combination no.9 4 4,000 mmu cells PO DAILY 10/11/19 05/15/22 billion cell capsule (Adult 50 Plus Probiotic) fluticasone propionate 50 2 spray inhalation DAILY PRN 01/27/20 05/15/22 mcg/actuation nasal allergy symptoms ##3 spray,suspension sulfasalazine 500 mg tablet See Rx Instructions .Route BID 01/27/20 05/15/22 #720 tab-caps trazodone 100 mg tablet 100 mg PO HS #90 tab-caps 01/27/20 05/15/22 venlafaxine 37.5 mg 37.5 mg PO DAILY #90 tab-caps 01/27/20 05/15/22 capsule,extended release 24 hr (Effexor XR) venlafaxine 75 mg capsule,extended 150 mg PO DAILY #180 tab-caps 01/27/20 05/15/22 release 24 hr (Effexor XR) Previous Rx's Medication Instructions Recorded fluticasone propionate 50 2 spray inhalation DAILY PRN 01/27/20 mcg/actuation nasal allergy symptoms ##3 spray,suspension sulfasalazine 500 mg tablet See Rx Instructions .Route BID 01/27/20 #720 tab-caps trazodone 100 mg tablet 100 mg PO HS #90 tab-caps 01/27/20 venlafaxine 37.5 mg 37.5 mg PO DAILY #90 tab-caps 01/27/20 capsule,extended release 24 hr (Effexor XR) venlafaxine 75 mg capsule,extended 150 mg PO DAILY #180 tab-caps 01/27/20 release 24 hr (Effexor XR) Allergies Allergy/AdvReac Type Severity Reaction Status Date / Time propoxyphene AdvReac Severe GI UPSET Unverified 05/15/22 10:33 fluticasone AdvReac Intermediate TACHYCARDIA Unverified 05/15/22 10:33 salmeterol AdvReac Intermediate TACHYCARDIA Unverified 05/15/22 10:33 General Stated Complaint: Vascular GA: 4 PFSH All Active Problems (Updated 05/15/22 @ 11:43 by ERASTO Treadwell) Biceps muscle tear (Acute) Neuropathy (Acute) Numbness of toes (Acute) Sleep apnea (Acute) 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 If her baseline remains the same, neg/(+)HR HPV or returns to neg/neg, she should continue paps q3yrs. If her pap cytology worsens, she will need colpo. She usually sees you in the spring for regular evaluation.Item routed to Provider.Item forwarded to Coco León Md, Dc.09/30/16 [id number] Joseph León completed. 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) Colitis (Chronic 12/15/12) NO WEIGHT LOSS Chronic fatigue (Chronic 10/20/17) Medical History (Updated 05/15/22 @ 11:43 by ERASTO Treadwell) Abdominal pain (~03/12/18) Abnormal mammogram, unspecified 03/13/04 [facility] [place]; Bx x 3 Bilateral Abnormal serum lipase level Elevated liver function tests Pancreatitis Radial styloid tenosynovitis left Smoker Vomiting Surgical History Biopsy of breast X 3 Cervical Procedure (09/18/11) Endometrial Biopsy, LOW KYLE (JANI I) Cholecystectomy History of gynecologic surgery endometrial Bx; low KYLE (JANI I) Open Carpal Tunnel release B/L S/P breast biopsy x3 S/P carpal tunnel release B/L S/P cholecystectomy Family History (Updated 10/20/19 @ 15:04 by Vicky Dior) Mother , AGE 91 Essential hypertension Senile dementia uncomp Father , AGE 100 Heart disease Brother No problems noted. Paternal Grandfather Cancer Maternal Grandmother Senile dementia uncomp Son , AGE 31 No problems noted. Son No problems noted. Social History (Updated 10/20/19 @ 15:03 by Vicky Dior) Smoking/Tobacco Use Status: Former Tobacco Use Quit Date: 04/14/09 Second Hand Exposure: No Smoking risk assessment performed?: Yes Alcohol Intake: former Counseling given: No Drug use: Never Substance use type: does not use Caregiver/Support person: No Household members: significant other and children Housing: house Communication Needs: Corrective Lenses Do you need help understanding health information?: Rarely Pets and animals: No Sexually active: No Do you think of yourself as: straight/heterosexual Current gender identity: female What is your relationship status?: How often do you talk on the phone with friends or family?: decline to answer How often do you get together with friends or relatives?: once per week How often do you attend hoahaoism or evangelical services?: 1-3 times per year Do you belong to any clubs or organized social groups?: no Panel score (0-1 are the most socially isolated patients): 0 What type of physical activity do you participate in: none Frequency: does not exercise Celine/Yazdanism: Mormonism Special celine needs: No Seatbelt use: always Helmet use: No Drive intox or ride w/intox 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 Ecchymosis, swelling, tenderness, no tenderness to left shoulder, or left wrist, neurovascularly intact Course Vital Signs Vital signs: Vital Signs Temperature 36.8 C 05/15/22 10:28 Pulse 96 H 05/15/22 10:28 Respiratory Rate 18 05/15/22 10:28 Blood Pressure 114/47 L 05/15/22 10:28 Pulse Oximetry 99 05/15/22 10:28 Temperature 36.8 C 05/15/22 10:28 Temperature Source Temporal Artery Scan 05/15/22 10:28 Pulse 96 H 05/15/22 10:28 Respiratory Rate 18 05/15/22 10:28 Respiratory Effort 05/15/22 10:55 Respiratory Depth Normal 05/15/22 10:55 Respiratory Pattern Normal 05/15/22 10:55 Blood Pressure 114/47 L 05/15/22 10:28 Pulse Oximetry 99 05/15/22 10:28 Oxygen Delivery Method Room Air 05/15/22 10:28 Oxygen Flow Rate 0 05/15/22 10:28 Pain Level 4 05/15/22 10:55 Lab/Test Results Lab/Test Results: Laboratory Tests Range/Units 05/15/22 05/15/22 10:50 10:50 WBC (4.4-10.8) 10^3/uL 9.42 RBC (3.93-5.22) 10^6/uL 4.21 Hgb (11.2-15.7) g/dL 12.4 Hct (36.0-46.0) % 38.8 MCV (80-95) fL 92 MCH (27.0-33.0) pg 29.5 MCHC (32.0-36.0) % 32.0 RDW (11.7-14.6) % 14.0 Plt Count (130-400) 10^3/uL 213 MPV (8.0-11.0) fL 9.2 Immature Gran % 0.5 Neutrophils % 70.4 Lymphocytes % 14.5 Monocytes % 12.8 Eosinophils % 1.1 Basophils % 0.7 Nucleated RBC % (0.0-0.3) % 0.0 Absolute Neutrophils (1.2-6.7) 10^3/uL 6.62 Absolute Lymphocytes (1.2-3.4) 10^3/uL 1.37 Absolute Monocytes (0.1-0.8) 10^3/uL 1.21 H Absolute Eosinophils (0.0-0.7) 10^3/uL 0.10 Absolute Basophils (0.0-0.2) 10^3/uL 0.07 PT (9.3-11.0) sec 10.4 INR (0.9-1.1) 1.0
== END 2022-05-15 12:03 | disposition home or self-care (01) ==
PROVIDERS: Emergency Provider Physician Assistant
DX: S46.212A Strain of muscle, fascia and tendon of other parts of biceps, left arm, initial encounter (principal); W55.09XA Other contact with cat, initial encounter
CPT/HCPCS: 36415; 99284; 85025; 85610; 93971; 99282

== ENCOUNTER 2024-08-13 17:45 | Outpatient (REF) | payer MEDICARE, SELFPAY ==
[2024-08-13 16:17] LABS: HCT 41.2 % (36.0-46.0); HGB 12.8 g/dL (11.2-15.7); MCH 28.6 pg (27.0-33.0); MCHC 31.1 % (32.0-36.0); MCV 92 fL (80-95); MPV 10.4 fL (8.0-11.0); Platelet Count 233 10^3/uL (130-400); RBC 4.47 10^6/uL (3.93-5.22); RDW 14.1 % (11.7-14.6); WBC 8.85 10^3/uL (4.4-10.8)
[2024-08-13 16:44] LABS: ALT 32 U/L (14-59); AST 40 U/L (15-37); Albumin 3.8 g/dL (3.4-5.0); Alkaline Phosphatase 111 U/L (46-116); BUN 18 mg/dL (7-18); Bilirubin, Total 0.4 mg/dL (0.2-1.0); CREATININE 0.7 mg/dL (0.55-1.02); Calcium 9.8 mg/dL (8.5-10.1); Calculated LDL 76 mg/dL (<100); Chloride 103 mmol/L (98-107); Cholesterol 176 mg/dL (<200); Estimated GFR 85.23 (mL/min/1.73m2); Glucose 98 mg/dL (74-106); HDL Cholesterol 88 mg/dL (>or=50); Potassium 4.6 mmol/L (3.5-5.1); Sodium 141 mmol/L (136-145); Total Protein 7.1 g/dL (6.4-8.2); Triglyceride 64 mg/dL (<150)
[2024-08-13 17:48] LABS: NT-proBNP 761 pg/mL (<300)
[2024-08-13 17:59] LABS: Hemoglobin A1C 6.1 % (<5.7)
== END 2024-08-13 17:46 | disposition home or self-care (01) ==
LOC: LBN 17:45
PROVIDERS: PCP Nurse Practitioner Family; Visit Provider Nurse Practitioner Family
DX: E78.5 Hyperlipidemia, unspecified (principal); Z00.00 Encounter for general adult medical examination without abnormal findings; F41.9 Anxiety disorder, unspecified; G47.00 Insomnia, unspecified; G47.30 Sleep apnea, unspecified; R73.09 Other abnormal glucose; R60.0 Localized edema; R06.02 Shortness of breath; I87.2 Venous insufficiency (chronic) (peripheral); R01.1 Cardiac murmur, unspecified; F32.9 Major depressive disorder, single episode, unspecified
CPT/HCPCS: 80053; 80061; 85027; 83036; 83880

== ENCOUNTER 2024-08-27 00:23 | Outpatient (CLI) | payer MEDICARE, SELFPAY ==
--- NOTE | 2024-08-27 12:30 | DI.US_ITS ---
APPROVED REPORT EXAM: Comprehensive 2D, Doppler, and color-flow Echocardiogram Patient Location: Out-Patient [facility] Supervisor: Chandler Franco RDCS (AE) Indications: Murmur Other Information Study Quality: Adequate Conclusion Normal left ventricular wall thickness and chamber size. Ejection fraction is 60%. Wall motion is n ormal Normal right ventricular size and function Both atria are normal in size Aortic valve is sclerotic and trileaflet without stenosis or regurgitation Mildly thickened mitral leaflets, trace mitral regurgitation Mild tricuspid regurgitation. Estimated right ventricular systolic pressure is 35 mmHg Ascending aorta measures 3.45 cm Wall motion Left Ventricle The left ventricle is normal size. Left ventricular systolic function is normal. The left ventricular ejection fraction is within the normal range. There is normal left ventricular wall thickness. There is normal LV segmental wall motion. The left ventricular diastolic function is normal. There is no v entricular septal defect visualized. LVEF is 60%. Right Ventricle The right ventricle is normal size. The right ventricular systolic function is normal. Atria The left atrium size is normal. The right atrium size is normal. The interatrial septum is intact wit h no evidence for an atrial septal defect. Aortic Valve The aortic valve is sclerotic. Aortic valve is trileaflet. There is no aortic valvular stenosis. No a ortic regurgitation is present. Mitral Valve Mitral valve leaflets are mildly thickened. No evidence of mitral valve stenosis. Trace mitral regurg itation. Tricuspid Valve The tricuspid valve is normal in structure. There is no tricuspid valve stenosis. Mild tricuspid regu rgitation. The RVSP is 35.2 mmHg. Pulmonic Valve The pulmonary valve is normal in structure. There is no pulmonic valvular stenosis. Mild pulmonic reg urgitation. Great Vessels The aortic root is normal in size. The ascending aorta is mildly dilated. Aortic arch is normal in ca liber. IVC is normal in size and collapses >50% with inspiration. Pericardium There is no pericardial effusion. 2D Dimensions IVSD d PLAX 0.88 cm F: 0.6-1.0 Ao Root d 2.84 cm F: 2.7 - 3.3 LVPW d PLAX 0.87 cm F: 0.6 - 1.0 Ao Asc Diam d 3.45 cm F: 2.3 - 3.1 LVID d PLAX 4.54 cm F: 3.8 - 5.2 LVDs 3.24 cm F: 2.2 - 3.5 LV EF Teichholz 55.3 % FS 28.63 % LV EDV (Teich) 94.3 mL LV ESV (Teich) 42.2 mL Stroke Vol Index (Teich) 30.31 M-Mode TAPSE 2.30 cm (M/F) >1.7 Auto EF LV EDV A4C 81.5 mL LV EDV A2C 82.3 mL LV EDV BP 82.1 mL LV ESV A4C 37.0 mL LV ESV A2C 37.0 mL LV ESV BP 37.7 mL LVEF(%) A4C 54.6 % LVEF(%) A2C 55.0 % LVEF(%) BP 54.1 % LV SV A4C 44.5 ml LV SV A2C 45.3 ml LV SV BP 44.5 ml LV CO A4C 2.7 L/min LV CO A2C 3.2 L/min LV CO BP 3.0 L/min HR A4C 61.54 BPM HR A2C 69.88 BPM LV EDV Index (BP) LA Volume LA Length A4C 4.1 cm LA Length A2C 5.0 cm LA Area A4C s 9.18 cm2 LA Area A2C s 9.41 cm2 LA Vol A4C A-L 17.30 mL LA Vol A2C A-L 15.15 mL LA Vol Biplane A-L 17.7 mL LA Vol/BSA A4C A-L LA Vol/BSA A2C A-L LA Vol/BSA BP A-L 10.3 mL/m2 LA Vol A4C MOD 16.2 mL LA Vol A2C MOD 14.9 mL LA Vol BP MOD 16.8 mL RA Volume RA Area A4C 6.3 cm2 RA ESV A4C (A-L) 9.9mL RA Vol/BSA A4C A-L RA Length A4C 3.4 cm RA ESV A4C (MOD) 9.6mL LV Diastology MV E' medial 0.063 (>0.07 m/s) MV E Vmax 0.70 (0.4-1.3 m/s) MV E/E' MED 11.17 (<14) MV A Vmax 0.90 (0.4-1.3 m/s) MV E' lateral 0.080 (>0.1 m/s) E/A Ratio 0.8 MV E/E' LAT 8.78 (<14) MV E' Average 0.071 m/s MV E/E'(average) 9.83 Aortic Valve AoV Vmax 1.65 m/s LVOT Vmax 1.27 m/s AoV Peak Grad 11.0 mmHg LVOT Peak Grad 6.5 mmHg AoV Area (Vmax) 1.86 cm2 LVOT VTI 0.254 m AoV VTI 0.348 m LVOT Mean Grad 2.9 mmHg AoV Mean Tu. 1.05 m/s LVOT SV 61.54 mL AoV Mean Grad 5.2 mmHg LVOT Diam s 1.75 cm AoV Area (VTI) 1.77 cm2 AV Regurg Peak Gr. 10.96 mmHg Velocity Ratio 0.77 Mitral Valve MV DT 222 (160-240 msec) Pulmonary Valve PV Vmax 0.94 (0.5-1.5 m/s) RVOT Vmax 0.59 m/s PV Peak Grad 3.5 mmHg RVOT Peak Gr. 1.4 mmHg PV Mean Tu 0.62 m/s RVOT VTI 0.126 m PV Mean Grad 1.7 mmHg RVOT Mean Gr. 0.6 mmHg Tricuspid Valve RA Pressure 3.00 mmHg TR Vmax 2.84 m/s TR Peak Grad 32.2 mmHg RVSP (TR) 35.2 mmHg
== END 2024-08-27 00:43 ==
LOC: DI 00:23
PROVIDERS: PCP Nurse Practitioner Family; Visit Provider Internal Medicine Cardiovascular Disease
DX: R01.1 Cardiac murmur, unspecified (principal); I08.2 Rheumatic disorders of both aortic and tricuspid valves
CPT/HCPCS: 93306

== ENCOUNTER 2024-10-28 01:25 | Outpatient (CLI) | payer MEDICARE, SELFPAY ==
[2024-10-28 09:54] LABS: Abs Immature Grans 0.01 10^3/uL (0.0-0.06); HCT 41.3 % (36.0-46.0); HGB 13.3 g/dL (11.2-15.7); Immature Grans % 0.1 %; MCH 28.9 pg (27.0-33.0); MCHC 32.2 % (32.0-36.0); MCV 90 fL (80-95); MPV 9.5 fL (8.0-11.0); Platelet Count 208 10^3/uL (130-400); RBC 4.61 10^6/uL (3.93-5.22); RDW 13.3 % (11.7-14.6); RDW-SD 43.8 fL; WBC 7.52 10^3/uL (4.4-10.8)
[2024-10-28 10:22] LABS: ALT 23 U/L (14-59); AST 24 U/L (15-37); Albumin 3.8 g/dL (3.4-5.0); Alkaline Phosphatase 99 U/L (46-116); Anion Gap 8.0 mmol/L (3-11); BUN 14 mg/dL (7-18); Bilirubin, Total 0.7 mg/dL (0.2-1.0); CO2 29.0 mmol/L (21.0-32.0); Calcium 9.6 mg/dL (8.5-10.1); Chloride 106 mmol/L (98-107); Estimated GFR 88.45 (mL/min/1.73m2); Glucose 97 mg/dL (74-106); Potassium 4.1 mmol/L (3.5-5.1); Sodium 143 mmol/L (136-145); Total Protein 7.5 g/dL (6.4-8.2)
[2024-10-28 10:23] LABS: C-Reactive Protein < 0.50 mg/dL (<or=0.5)
== END 2024-10-28 01:26 | disposition home or self-care (01) ==
PROVIDERS: PCP Nurse Practitioner Family; Visit Provider Internal Medicine Gastroenterology
DX: K52.9 Noninfective gastroenteritis and colitis, unspecified (principal)
CPT/HCPCS: 36415; 80053; 82784; 85025; 86140

== ENCOUNTER → 2025-03-24 01:07 | Outpatient (CLI) | payer MEDICARE, SELFPAY ==
--- NOTE | 2025-03-24 07:30 | DI.DEXA_ITS ---
Exam(s) XR DEXA BONE DENSITY W/WO ENOC EXAM: XR DEXA BONE DENSITY W/WO ENOC CLINICAL HISTORY: screening for fracture risk,postmenopausal status,z78.0 TECHNIQUE: Vtrim C densitometer analysis of left hip, lumbar spine and left forearm. Lateral survey image of the thoracic and lumbar spine. COMPARISON: No exams were available for comparison FINDINGS: Lateral view of the thoracic and lumbar spine shows no evidence of compression fractures. Bone mineral density measurements of the lumbar spine correspond to a total T- score of -1.1, in the osteopenic range. Bone mineral density measurements of the left hip correspond to a total T-score of -1.1, in the osteopenic range. The femoral neck T-score is -0.9. Theleft forearm bone mineral density measurements correspond to a T-score of the distal 3rd of -2.7, in the osteoporotic range. 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
== END ==
LOC: DI 01:07
PROVIDERS: PCP Nurse Practitioner Family; Visit Provider Nurse Practitioner Family
DX: Z13.820 Encounter for screening for osteoporosis (principal); Z78.0 Asymptomatic menopausal state; M81.0 Age-related osteoporosis without current pathological fracture
CPT/HCPCS: 77080